=== PATIENT | female | born 1945 | race Caucasian/White ===

== ENCOUNTER 2020-07-27 13:30 | Outpatient (RCR) | payer MEDICARE, OTHER, SELFPAY ==
--- NOTE | 2020-05-30 09:26 | HP.OTEVAL ---
Patient's Visit Information JUAN C NEUMANN is a 74 year old F, referred to Occupational Therapy by Dr. Nestor Ross MD, with a diagnosis of left unilateral primary osteoarthritis. Date of Evaluation: 05/29/20 Occupational Therapist: Loida Bryson, OTR/L, CHT - Subjective This 74 year old female was seen for OT eval with dx of unilateral primary osteoarthritis first carpometacarpal joint left. pt states two year at least she had increase pain and trouble with performing ADLs. pt pt currently 4 weeks s/p left cmc arthroplasty and is in need of custom orthosis to provide support and protection while healing. pt states she decided to have sx because she was limited with ADLs and IADls. - Pain left hand 2 Pain Intensity Range: 3 - ROM Wrist: right 40/60 left 45/45 CMC: right 15 left 0 MP: right 25 left 20 IP: right NT left 45 - Strength Maple Sugar Maker: right 27# left NT - Sensation Sensation Comments: denies - Quick DASH-Disab of Arm,Shoulder& Hand Quick DASH Score: 65.9075 - Rehabilitation General Assessment: pt currently 4 weeks s/p left cmc arthroplasty and demo with limited wrist and thumb ROM. this has increased pt need of assist with ADLs and IADLs. Pt would benefit from skilled OT services 1x week for 8 weeks to assist pt in recovery to return ROM and strength to PLOF. Today therapist asim. custom orthosis of left thumb spica to providing support while structure is healing. Today therapist ed. on orthosis use, precautions and short arch wrist ROM and IP and MP ROM. pt demo understanding and agree to POC. Rehabilitation Potential: Excellent - Anticipated Interventions A/AAROM/PROM, Strengthening, Scar Care, Triggerpoint Release, Desensitization, Modalities, Orthoses, Joint Protection/Energy Conservation, Ergonomic Education, Fine Motor Coord/Aaron - Visit Plan Frequency: 1-2x /Week Duration: 2 Months General Plan: will follow CMC arthroplasty protocol TEXT: Thank you for the opportunity to evaluate your patient. For Medicare and Medicare HMO plans, please review the plan of care and approve it. It will need to be FAXED BACK to us at [phone] for Medicare purposes. Please let me know if there are questions or concerns regarding this plan of care. Physician Signature: Date:
--- NOTE | 2020-05-30 09:29 | HP.OTEVAL_ITS ---
Patient's Visit Information JUAN C NEUMANN is a 74 year old F, referred to Occupational Therapy by Dr. Nestor Ross MD, with a diagnosis of left unilateral primary osteoarthritis. Date of Evaluation: 05/29/20 Occupational Therapist: Loida Bryson, OTR/L, CHT - Subjective This 74 year old female was seen for OT eval with dx of unilateral primary osteoarthritis first carpometacarpal joint left. pt states two year at least she had increase pain and trouble with performing ADLs. pt pt currently 4 weeks s/p left cmc arthroplasty and is in need of custom orthosis to provide support and protection while healing. pt states she decided to have sx because she was limited with ADLs and IADls. - Pain left hand 2 Pain Intensity Range: 3 - ROM Wrist: right 40/60 left 45/45 CMC: right 15 left 0 MP: right 25 left 20 IP: right NT left 45 - Strength Historiographer: right 27# left NT - Sensation Sensation Comments: denies - Quick DASH-Disab of Arm,Shoulder& Hand Quick DASH Score: 65.9075 - Goals Goal:100% adherence to protocol: Yes Comment: CMC arthroplasty protocol l Goal:Daily scar massage when approriate: Yes Goal:ROM equal to unaffected hand: Yes Goal:Historiographer/Pinch strength at least 75% of unaffected hand: Yes Goal:No pain with affected hand use: Yes Goal:Full use of affected hand in daily activities including: Yes Goal:Decrease scar hypersensitivity: Yes - Rehabilitation General Assessment: pt currently 4 weeks s/p left cmc arthroplasty and demo with limited wrist and thumb ROM. this has increased pt need of assist with ADLs and IADLs. Pt would benefit from skilled OT services 1x week for 8 weeks to assist pt in recovery to return ROM and strength to PLOF. Today therapist asim. custom orthosis of left thumb spica to providing support while structure is healing. Today therapist ed. on orthosis use, precautions and short arch wrist ROM and IP and MP ROM. pt demo understanding and agree to POC. Rehabilitation Potential: Excellent - Anticipated Interventions A/AAROM/PROM, Strengthening, Scar Care, Triggerpoint Release, Desensitization, Modalities, Orthoses, Joint Protection/Energy Conservation, Ergonomic Education, Fine Motor Coord/Aaron - Visit Plan Frequency: 1-2x /Week Duration: 2 Months General Plan: will follow CMC arthroplasty protocol TEXT: Thank you for the opportunity to evaluate your patient. For Medicare and Medicare HMO plans, please review the plan of care and approve it. It will need to be FAXED BACK to us at [phone] for Medicare purposes. Please let me know if there are questions or concerns regarding this plan of care. Physician Signature: Date:
--- NOTE | 2020-06-28 09:24 | HP.OTREVAL ---
Dr. Nestor Ross MD, It has been my pleasure to treat JUAN C NEUMANN over the last 5 visits for left unilateral primary osteoarthritis. Please see the progress note below for an update on the occupational therapy plan of care! Subjective: pt arrives 8 weeks s/p Objective/Function: left cmc 20*. MP 25. IP 55. opposition to LF without pain. left air traffic control manager strength 24# left is 27#. left lateral pinch 6#. pt does demo with MP hyper-ext with pinch - pt has been ed. to use good thumb posture and avoid this MP hyper-ext. with pinch and grasp. pt demo understanding- therapist has rec.d cont. with joint protection catalino. and thumb stabilization ex. and possibe use of suppoted MP brace to limit hyper -ext with use for heavy tasks. Plan Frequency: 1-2x /Week Duration: 2 Months Plan: cont with light air traffic control manager strengthening. wrist /biceps Goals - Goals Patient Goals: Regain Mobility, Use Hand/Wrist/Arm Normally Again Goal:100% adherence to protocol: Yes Goal:Daily scar massage when approriate: Yes Goal:ROM equal to unaffected hand: Yes Goal:Supervisor Fabrication And Assembly/Pinch strength at least 75% of unaffected hand: Yes Goal:No pain with affected hand use: Yes Goal:Full use of affected hand in daily activities including: Yes Goal:Decrease scar hypersensitivity: Yes Anticipated Interventions Anticipated Interventions: A/AAROM/PROM, Strengthening, Scar Care, Triggerpoint Release, Desensitization, Modalities, Orthoses, Joint Protection/Energy Conservation, Ergonomic Education, Fine Motor Coord/Aaron Please do not hesitate to contact me at [phone] by phone or if you have questions or concerns regarding this new plan of care! Sincerely, Loida Bryson, OTR/L, CHT
--- NOTE | 2020-11-20 16:30 | HP.OT.NRP ---
JUAN C NEUMANN was seen in my office for initial evaluation on 05/29/20. The following Plan of Care was established for this patient: Initial Frequency: 1-2x /Week Initial Duration: 2 Months Plan: cont POC Anticipated Interventions: A/AAROM/PROM, Strengthening, Scar Care, Triggerpoint Release, Desensitization, Modalities, Orthoses, Joint Protection/Energy Conservation, Ergonomic Education, Fine Motor Coord/Aaron This patient was last seen in our office 07/27/20. Pertinent comments regarding their Occupational therapy will appear below: left cmc 20* MP 25 IP 55 opposition to LF without pain left second ride fare collector strength 30# left is 36# left lateral pinch 6# pt does demo with MP hyper-ext with pinch - pt has been ed. to use good thumb posture and avoid this MP hyper-ext. with pinch and grasp. pt demo understanding- therapist has rec.d cont. with joint protection catalino. and thumb stabilization ex. and possible use of supposed MP brace to limit hyper -ext with use for heavy tasks. pt has not scheduled further apts and at this time d/c due to time lapse in services. At this point I will be discontinuing this patient from occupational therapy. I would be happy to see this patient again in the future if found appropriate by the physician. Thank you! Loida Bryson, OTR/L, CHT
== END 2020-07-27 19:00 | disposition home or self-care (01) ==
LOC: OT 13:30
PROVIDERS: PCP Family Medicine; Referring Provider Specialist; Visit Provider Specialist
DX: M18.12 Unilateral primary osteoarthritis of first carpometacarpal joint, left hand (principal)
CPT/HCPCS: 97110; 97140; 97166; 97530; 97760

== ENCOUNTER 2023-06-25 09:00 | Outpatient (RCR) | payer MEDICARE, OTHER, SELFPAY ==
[2023-06-18 09:01] VITALS: BP 132/68; PULSE 82; RESP 16; TEMP 36.8; BMI 27.3
[2023-06-18 10:13] VITALS: BMI 27.3
--- NOTE | 2023-06-18 11:16 | HP.PCM_ITS ---
History of Present Illness Date of Service: 06/18/23 Chief Complaint: Left lateral lower leg wound traumatic History of Wound: 77-year-old white female with a history of a DVT in the left lower leg has developed an open wound that will not heal. Patient states that last summer had cut her left lower leg and had healed but now reopened. Patient has had problems with healing so they did a Doppler series on her and found that she had a DVT in her left lower leg. Patient is now on Eliquis She also suffers from adrenal insufficiency and is on steroids every day. Patient just finished a bout of antibiotics Augmentin without any cultures being done. [facility] Home Medications alendronate 70 mg tablet (Fosamax) 70 mg PO QWEEK 06/18/23 [History Last Taken Unknown] calcium citrate 200 mg calcium-vitamin D3 3.125 mcg (125 unit) tablet 1 tab PO BID 06/18/23 [History Last Taken Unknown] fludrocortisone 0.1 mg tablet 0.05 mg PO DAILY 06/18/23 [History Last Taken Unknown] hydroxychloroquine 200 mg tablet 200 mg PO DAILY 06/18/23 [History Last Taken Unknown] levothyroxine 50 mcg capsule 50 mcg PO DAILY 06/18/23 [History Last Taken Unknown] magnesium 250 mg tablet 250 mg PO DAILY 06/18/23 [History Last Taken Unknown] dczrgivqgdgk-Aq-vhqj-minerals 1 tab PO DAILY 06/18/23 [History Last Taken Unknown] prednisone 2.5 mg tablet 2.5 mg PO BID 06/18/23 [History Last Taken Unknown] Allergy/AdvReac Type Severity Reaction Status Date / Time latex Allergy Rash Verified 06/18/23 09:22 Social History Smoking Status: Never smoker ROS Constitutional Constitutional: Reports systems reviewed and no addt'l complaints, except as documented Eyes Eyes: Reports systems reviewed and no addt'l complaints, except as documented ENT HEENT: Reports systems reviewed and no addt'l complaints, except as documented Cardiovascular Cardiovascular: Reports systems reviewed and no addt'l complaints, except as documented Respiratory/Chest Respiratory/Chest: Reports systems reviewed and no addt'l complaints, except as documented Gastrointestinal Gastrointestinal: Reports systems reviewed and no addt'l complaints, except as documented Genitourinary Genitourinary: Reports systems reviewed and no addt'l complaints, except as documented Musculoskeletal Musculoskeletal: Reports systems reviewed and no addt'l complaints, except as documented Integumentary Integumentary: Reports wounds and other Details: Left lateral lower extremity open wound nonhealing from trauma. Neurologic Neurologic: Reports systems reviewed and no addt'l complaints, except as documented Psychiatric Psychiatric: Reports systems reviewed and no addt'l complaints, except as documented Endocrine Endocrinology: Reports systems reviewed and no addt'l complaints, except as documented Hematologic/Lymphatic Hematologic/Lymphatic: Reports systems reviewed and no addt'l complaints, except as documented Allergic/Immunologic Allergic/Immunologic: Reports systems reviewed and no addt'l complaints, except as documented Vital Signs Vital Signs Vital Signs: 06/18/23 09:01 Temperature 98.2 F Temperature Source Temporal Pulse Rate 82 Respiratory Rate 16 Blood Pressure 132/68 H Blood Pressure Mean 89 Blood Pressure Source Monitor Blood Pressure Position Sitting Blood Pressure Location Right Arm Oxygen Delivery Method Room Air Weight Weight: 145 lb Body Mass Index (BMI) 27.3 Physical Exam Const oriented x3 General Appearance: cooperative Exam Limitations: no limitations HEENT normocephalic Head and Scalp: normal to inspection Face and Sinus: normal facial exam Nose: external nose normal Eyes PERRL General Eye: normal appearance of both eyes Neck full ROM General: normal visual inspection Resp normal respiratory effort Effort and Inspection: able to speak in complete sentences Auscultation: clear to auscultation bilaterally Cardio regular rate and regular rhythm Palpation: normal PMI Rate: regular rate Rhythm: regular rhythm Extremity General Extremity: normal exam except as noted and other findings Other Details: Varicosities and some discoloration is bruising in the lower leg open wound on the left lateral leg with some swelling Skin Wound Narrative: Open wound left lower leg nonhealing feels it is from trauma reopening of a laceration. Plus history of a DVT in that left lower leg Neuro oriented x3 Psych Appearance: grossly normal Speech: normal speech Thought Content: normal thought content Judgement: judgement good Debridement Note Debridement Note Wound debrided: Left lateral lower leg ulcer none pressure Laterality: Left Type of Debridement: Excisional debridement Anesthesia Used: 5% Lidocaine Gel Depth: in the subcutaneous layer Percentage of wound debrided: 100 Instrument Used: 5mm curette Tissue Removed: Fibrin and slough Severity: Fat Layer Exposed Amount of bleeding with debridement: Mild Bleeding Controlled with: Compression and gauze Patient tolerated procedure: Patient tolerated procedure well Post-Debridement Measurements and Additional Note: Post-Debridement Measurements/Treatment - Nurse 1 - General Ulcer Assessment Start: 06/18/23 09:01 Freq: Status: Active Protocol: ARVIND Activity Type Activity Date Activity User E-sign Co-sign Detail Recorded Client Recorded Date Recorded By Document 06/18/23 09:01 [facility] Desktop 06/18/23 09:17 [facility] Document 06/18/23 10:13 [facility] [id number] 06/18/23 10:14 [facility] 06/18/23 06/18/23 09:01 10:13 - Today's Visit Information Type of service Initial Visit Arrival Mode Ambulatory Transfer Assistance None Transfer Assist (Other) Patient Identification Verified (Name & Yes ) Patient Requires Transmission-Based No Precautions Height and Weight Height 5 ft 1 in Weight 145 lb Weight in Pounds 145.0 lbs Body Mass Index (BMI) 27.3 27.3 BMI Classification Overweight Overweight BSA - Beverly 1.65 Vital Signs Temperature (97.8 F-99.1 F) 98.2 F Temperature Source Temporal Pulse Rate (60-100) 82 Pulse Location Monitor Respiratory Rate (12-18) 16 Respiratory rate source Observation Oxygen Delivery Method Room Air Blood Pressure (90/60-120/80) 132/68 H Blood Pressure Mean 89 Source Monitor Position Sitting Blood Pressure Location Right Arm History Since Last Visit- (Skip if this is Patient's initial visit) Left Footwear Regular Shoe Right Footwear Regular Shoe Pain Scale: 0-10 Numeric Is Patient Pain Free? Yes Yes Lower Extremity Assessment/ Foot Assessment/ Toe Nail Assessment Right -Posterior Tibial Doppler Monophasic -Dorsalis Pedis Doppler Monophasic -Hair Growth on Legs No -Hair Growth on Toes No -Temperature of Extremity Cool -Capillary Refill Less than 3 Seconds -Other Deformity No -Prior Foot Ulcer No -Charcot Joint No -Prior Amputation No -Thick Yes -Discolored Yes -Deformed No -Improper Length & Hygeine No Left -Posterior Tibial Doppler Monophasic -Dorsalis Pedis Doppler Multiphasic -Extremity Color Pale -Hair Growth on Legs No -Hair Growth on Toes No -Temperature of Extremity Cool -Capillary Refill Less than 3 Seconds -Other Deformity No -Prior Foot Ulcer No -Charcot Joint No -Prior Amputation No -Thick Yes -Discolored Yes -Deformed No -Improper Length & Hygeine No Communication Assessment Preferred language Syriac Assistant Housekeeping Manager Required No Able to Read Yes Able to Write Yes Communication Tools None Right Hearing Abillity Normal Left Hearing Abillity Normal Visual Assistive Devices Glasses Teaching Assessment Preferences Verbal,Written, Audio/Visual, Demonstration Barriers to Learning None Readiness To Learn Excellent Willingness to Engage in Self Management High Activies Readiness to Engage in Self Management High Activities Anxiety Level Calm Cooperation Cooperative Perception Coherent Interest in Health Problem Asks Questions Education Importance Acknowledges Need Does Patient Smoke tobacco or other No substances Smoking Status Never smoker Is Patient Diabetic No Functional Assessment Recent Decline in Ability to Perform Denies Any Declines Culture/Catholic/Cylinder Grinder Cultural/Catholic Needs that may affect No Treatment Plan Teaching: Wound Center *Welcome to the Wound Center -Person Taught Patient, Significant Other -Teaching Method Discussion -Response to teaching Verbalize understanding Welcome to the Wound Care Center Syriac WC - Nurse 1 - General Ulcer Measurement Start: 06/18/23 09:01 Freq: Status: Active Protocol: Activity Type Activity Date Activity User E-sign Co-sign Detail Recorded Client Recorded Date Recorded By Document 06/18/23 09:01 [facility] Desktop 06/18/23 09:17 [facility] 06/18/23 09:01 Wound Center Nurse 1 #1- L LAT GALLARDO -Combined with other wound No -Current Size (cm) - Length 2.2 -Current Size (cm) - Width 1.3 -Current Size (cm) - Depth 0.1 -Total Square Cm 2.86 -Date of Last Picture (Recall this 06/18/23 field) -Photo Taken Yes -Epithelialization None Present -Tunneling No -Undermining/Tunneling No -Circular Undermining No -Exudate Amt Medium -Exudate Type Serosanguineous -Wound Margin Distinct, Outline Attached -Granulation Amt None Present (0 %) -Slough/Fibrin Yes -Necrosis Amt Medium (34-66%) -Necrotic Tissue Type Adherent Slough -Texture (Clarice-wound Skin Appearance) Assessed, Scarring -Moisture (Clarice-wound Skin Appearance) Assessed -Color (Clarice-wound Skin Appearance) Assessed -Temperature (Clarice-wound Skin No Abnormality Appearance) (Pt Warm) -Tenderness on Palpation (Clarice-wound No Skin Appearance) -Ulcer Cleansing Soap and Water -Foul Odor after Cleansing No -Anesthetic Used 4% Lidocaine Solution Lower Limb Edema Present Yes Right Calf (cm) 33.8 Right Ankle (cm) 20.3 Left Calf (cm) 33.5 Left Ankle (cm) 20.3 LUZ ELENA - Nurse 2 - General Ulcer CM Notes Start: 06/18/23 09:01 Freq: Status: Active Protocol: Activity Type Activity Date Activity User E-sign Co-sign Detail Recorded Client Recorded Date Recorded By Document 06/18/23 09:32 [facility] Desktop 06/18/23 09:40 MW 06/18/23 09:32 Wound Center Nurse 2 #1- L LAT GALLARDO -Time 09:32 -Correct Patient Yes -Correct Side, Site, Position Yes -Correct Procedure Yes -Procedure Performed Yes -Type of Procedure Debridement -Clinical Debridement Subcutaneous -Tissue Removed Subcutaneous -Post Debridement (cm) - Length 2.1 -Post Debridement (cm) - Width 1.5 -Post Debridement (cm) - Depth 0.2 -Total Square (Post) (cm) 3.15 -Area of Debridement (cm) - Length 2.1 -Area of Debridement (cm) - Width 1.5 -Total Square (Area) (cm) 3.15 -Tunneling No -Undermining/Tunneling No -Circular Undermining No -Wound/Ulcer Outcome Not Healed -Ulcer Cleansing Rinsed/ Irrigated with Saline -Foul Odor after Cleansing No -Bioengineered Tissue No -Bleeding Controlled with Pressure -Treatment Response Procedure Tolerated Well -Offloading No -Debridement - Subq, 1st 20sq cm Yes Pain Scale: 0-10 Numeric Is Patient Pain Free? Yes LUZ ELENA - Nurse 3 - General Ulcer D/C NN Start: 06/18/23 09:01 Freq: Status: Active Protocol: Activity Type Activity Date Activity User E-sign Co-sign Detail Recorded Client Recorded Date Recorded By Document 06/18/23 09:55 [facility] Desktop 06/18/23 09:56 [facility] Edit Result 06/18/23 09:55 [facility] (1) Desktop 06/18/23 10:25 [facility] (1) #1- L LAT GALLARDO - Primary Dressing Applied Fibracol Plus 4x4, => Fibracol Plus 4x4, NonAdherent => Mepilex Border, Contact Layer, => NonAdherent Optilok 6.5x10 => Contact Layer - Mepilex Border => 1 - Optilok 6.5x10 1 => 06/18/23 09:55 Wound Care Center Nurse 3 #1- L LAT GALLARDO -Ulcer Cleansing Rinsed/ Irrigated with Saline -Foul Odor after Cleansing No -Primary Dressing Applied Fibracol Plus 4x4,Mepilex Border, NonAdherent Contact Layer -Fibracol Plus 4x4 1 -Mepilex Border 1 BLE -Tubular Bandage Double Layer -Size of Tubigrip Used Size E -Size E ($) 2 -Other HCS BRAND Treatment Response Procedure Tolerated Well Pain Scale: 0-10 Numeric Is Patient Pain Free? Yes WC - Visit Discharge Discharge Condition Stable Ambulatory Status Ambulatory,Cane Transportation Private Auto Accompanied by [facility] Facility Type Home Health Other PT TO CALL IN W / NAME OF HOME HEALTH Assessment/Plan Assessment/Plan (1) Non-pressure ulcer of left lower extremity: CODE(S): L97.929 - Non-pressure chronic ulcer of unspecified part of left lower leg with unspecified severity QUALIFIERS: Non-pressure ulcer stage: with fat layer exposed Qualified Code(s): L97.922 - Non-pressure chronic ulcer of unspecified part of left lower leg with fat layer exposed PLAN: Wash left lower leg with antibacterial soap such as Dial and pat dry Apply Fibracol to wound base moistened and cover with Adaptic gauze dressing and a Justin. Double layer Tubigrip to left lower leg Cultures were obtained will call with results Follow-up in 1 week (2) Edema of left lower leg: CODE(S): R60.0 - Localized edema (3) Adrenal insufficiency: CODE(S): E27.40 - Unspecified adrenocortical insufficiency
--- NOTE | 2023-06-23 13:35 | WC ---
3.20.24 LT LAT GALLARDO
[2023-06-25 09:01] VITALS: BP 140/68; PULSE 78; RESP 18; TEMP 36.3; BMI 27.3
--- NOTE | 2023-06-25 10:19 | PN.PCM_ITS ---
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 Patient states that last summer had cut her left lower leg and had healed but now reopened. Patient has had problems with healing so they did a Doppler series on her and found that she had a DVT in her left lower leg. Patient is now on Eliquis She also suffers from adrenal insufficiency and is on steroids every day. Patient just finished a bout of antibiotics Augmentin without any cultures being done. 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 We will refer her to Dr. Dasilva for opening up. The wound on her left lateral leg looks very good shallow smaller healing well. Subjective Subjective and are happy with outcomes and they will meet with Dr. Dasilva Objective Data Objective Data As stated above wound area is smaller bakeshop cleaner less depth pretty superficial now we will continue leaving her on the Fibracol and Adaptic and covering it with a dressing. Vital Signs: Vital Signs Temp Pulse Resp BP O2 Del Method 97.3 F L 78 18 140/68 H Room Air 06/25/23 09:01 06/25/23 09:01 06/25/23 09:01 06/25/23 09:01 06/18/23 09:01 Oxygen Delivery Method Room Air Weight: 145 lb Body Mass Index (BMI) 27.3 Lab / Micro Data Attestation: I reviewed the patient's lab results. Micro: Microbiology 06/18/23 09:30 Wound Abcess - Other Gram Stain - Final 06/18/23 09:30 Wound Abcess - Other Wound Culture - Final Staphylococcus epidermidis 06/18/23 09:30 Wound Abcess - Other Anaerobic Culture - Final No growth in 5 days. Physical Exam Const oriented x3 General Appearance: cooperative Exam Limitations: no limitations HEENT normocephalic Head and Scalp: normal to inspection Face and Sinus: normal facial exam Nose: external nose normal Eyes PERRL General Eye: normal appearance of both eyes Neck full ROM General: normal visual inspection Resp normal respiratory effort Effort and Inspection: able to speak in complete sentences Auscultation: clear to auscultation bilaterally Cardio regular rate and regular rhythm Palpation: normal PMI Rate: regular rate Rhythm: regular rhythm Extremity General Extremity: normal exam except as noted and other findings Other Details: Varicosities and some discoloration is bruising in the lower leg open wound on the left lateral leg with some swelling Skin Wound Narrative: Open wound left lower leg nonhealing feels it is from trauma reopening of a laceration. Plus history of a DVT in that left lower leg Neuro oriented x3 Psych Appearance: grossly normal Speech: normal speech Thought Content: normal thought content Judgement: judgement good Debridement Note Debridement Note Wound debrided: Left lateral lower leg ulcer none pressure Laterality: Left Type of Debridement: Excisional debridement Anesthesia Used: 5% Lidocaine Gel Depth: in the subcutaneous layer Percentage of wound debrided: 100 Instrument Used: 5mm curette Tissue Removed: Fibrin and slough Severity: Fat Layer Exposed Amount of bleeding with debridement: Mild Bleeding Controlled with: Compression and gauze Patient tolerated procedure: Patient tolerated procedure well Post-Debridement Measurements and Additional Note: Post-Debridement Measurements/Treatment - Nurse 1 - General Ulcer Assessment Start: 06/18/23 09:01 Freq: Status: Active Protocol: ARVIND Activity Type Activity Date Activity User E-sign Co-sign Detail Recorded Client Recorded Date Recorded By Document 06/18/23 09:01 [facility] Desktop 06/18/23 09:17 [facility] Document 06/18/23 10:13 [facility] [id number] 06/18/23 10:14 [facility] Document 06/25/23 09:01 DL Desktop 06/25/23 09:09 DL 06/18/23 06/18/23 06/25/23 09:01 10:13 09:01 - Today's Visit Information Type of service Initial Visit Follow-up Visit (Physician/RN COMMUNITY ) Arrival Mode Ambulatory Ambulatory Transfer Assistance None None Transfer Assist (Other) Patient Identification Verified (Name & Yes Yes ) Patient Requires Transmission-Based No No Precautions Height and Weight Height 5 ft 1 in Weight 145 lb Weight in Pounds 145.0 lbs Body Mass Index (BMI) 27.3 27.3 27.3 BMI Classification Overweight Overweight Overweight BSA - [place] 1.65 Vital Signs Temperature (97.8 F-99.1 F) 98.2 F 97.3 F L Temperature Source Temporal Temporal Pulse Rate (60-100) 82 78 Pulse Location Monitor Monitor Respiratory Rate (12-18) 16 18 Respiratory rate source Observation Observation Oxygen Delivery Method Room Air Blood Pressure (90/60-120/80) 132/68 H 140/68 H Blood Pressure Mean (mm Hg) 89 92 Source Monitor Monitor Position Sitting Blood Pressure Location Right Arm History Since Last Visit- (Skip if this is Patient's initial visit) Have you changed medications since your No last visit? Any new allergies or adverse reactions No Had a fall/change in ADL's that may No increase risk of falls Signs or symptoms of abuse and/or No neglect since last visit Have you been in the hospital since your No last visit? Has dressing in place as prescribed Yes Has compression in place as prescribed Yes Has offloadiing in place as prescribed N/A Experienced any changes in pain level or No management Left Footwear Regular Shoe Right Footwear Regular Shoe Pain Scale: 0-10 Numeric Is Patient Pain Free? Yes Yes Yes Lower Extremity Assessment/ Foot Assessment/ Toe Nail Assessment Right -Posterior Tibial Doppler Monophasic -Dorsalis Pedis Doppler Monophasic -Hair Growth on Legs No -Hair Growth on Toes No -Temperature of Extremity Cool -Capillary Refill Less than 3 Seconds -Other Deformity No -Prior Foot Ulcer No -Charcot Joint No -Prior Amputation No -Thick Yes -Discolored Yes -Deformed No -Improper Length & Hygeine No Left -Posterior Tibial Doppler Monophasic -Dorsalis Pedis Doppler Multiphasic -Extremity Color Pale -Hair Growth on Legs No -Hair Growth on Toes No -Temperature of Extremity Cool -Capillary Refill Less than 3 Seconds -Other Deformity No -Prior Foot Ulcer No -Charcot Joint No -Prior Amputation No -Thick Yes -Discolored Yes -Deformed No -Improper Length & Hygeine No Communication Assessment Preferred language [place] Reeling Operator Required No Able to Read Yes Able to Write Yes Communication Tools None Right Hearing Abillity Normal Left Hearing Abillity Normal Visual Assistive Devices Glasses Teaching Assessment Preferences Verbal,Written, Audio/Visual, Demonstration Barriers to Learning None Readiness To Learn Excellent Willingness to Engage in Self Management High Activies Readiness to Engage in Self Management High Activities Anxiety Level Calm Cooperation Cooperative Perception Coherent Interest in Health Problem Asks Questions Education Importance Acknowledges Need Does Patient Smoke tobacco or other No substances Smoking Status Never smoker Is Patient Diabetic No Functional Assessment Recent Decline in Ability to Perform Denies Any Declines Culture/Islam/Shoe Dresser Cultural/Islam Needs that may affect No Treatment Plan Teaching: Wound Center *Welcome to the Wound Center -Person Taught Patient, Significant Other -Teaching Method Discussion -Response to teaching Verbalize understanding Welcome to the Wound Care Center English [place] - Nurse 1 - General Ulcer Measurement Start: 06/18/23 09:01 Freq: Status: Active Protocol: Activity Type Activity Date Activity User E-sign Co-sign Detail Recorded Client Recorded Date Recorded By Document 06/18/23 09:01 [facility] Desktop 06/18/23 09:17 [facility] Document 06/25/23 09:01 DL Desktop 06/25/23 09:09 DL 06/18/23 06/25/23 09:01 09:01 Wound Center Nurse 1 #1- L LAT GALLARDO -Combined with other wound No -Current Size (cm) - Length 2.2 1.8 -Current Size (cm) - Width 1.3 1.2 -Current Size (cm) - Depth 0.1 0.1 -Total Square Cm 2.86 2.16 -Date of Last Picture (Recall this 06/18/23 field) -Photo Taken Yes -Epithelialization None Present -Tunneling No -Undermining/Tunneling No -Circular Undermining No -Exudate Amt Medium Medium -Exudate Type Serosanguineous Serosanguineous -Wound Margin Distinct, Distinct, Outline Outline Attached Attached -Granulation Amt None Present (0 Small (1-33%) %) -Granulation Quality [place] -Slough/Fibrin Yes -Necrosis Amt Medium (34-66%) Large (67-100%) -Necrotic Tissue Type Adherent Slough Adherent Slough -Texture (Clarice-wound Skin Appearance) Assessed, Scarring Scarring -Moisture (Clarice-wound Skin Appearance) Assessed No Abnormality -Color (Clarice-wound Skin Appearance) Assessed Hemosiderin Staining -Temperature (Clarice-wound Skin No Abnormality No Abnormality Appearance) (Pt Warm) (Pt Warm) -Tenderness on Palpation (Clarice-wound No Skin Appearance) -Ulcer Cleansing Soap and Water Rinsed/ Irrigated with Saline -Foul Odor after Cleansing No No -Anesthetic Used 4% Lidocaine 5% Lidocaine Solution Gel Lower Limb Edema Present Yes Right Calf (cm) 33.8 30.5 Right Ankle (cm) 20.3 19.6 Left Calf (cm) 33.5 29.8 Left Ankle (cm) 20.3 19.2 WC - Nurse 2 - General Ulcer CM Notes Start: 06/18/23 09:01 Freq: Status: Active Protocol: Activity Type Activity Date Activity User E-sign Co-sign Detail Recorded Client Recorded Date Recorded By Document 06/18/23 09:32 MW Desktop 06/18/23 09:40 MW Document 06/25/23 09:17 [facility] Desktop 06/25/23 09:20 BMF 06/18/23 06/25/23 09:32 09:17 Wound Center Nurse 2 #1- L LAT GALLARDO -Time 09: 09:17 -Correct Patient Yes Yes -Correct Side, Site, Position Yes Yes -Correct Procedure Yes Yes -Procedure Performed Yes Yes -Type of Procedure Debridement Debridement -Clinical Debridement Subcutaneous Subcutaneous -Tissue Removed Subcutaneous Subcutaneous -Post Debridement (cm) - Length 2.1 2 -Post Debridement (cm) - Width 1.5 0.8 -Post Debridement (cm) - Depth 0.2 0.1 -Total Square (Post) (cm) 3.15 1.6 -Area of Debridement (cm) - Length 2.1 2 -Area of Debridement (cm) - Width 1.5 0.8 -Total Square (Area) (cm) 3.15 1.6 -Tunneling No No -Undermining/Tunneling No No -Circular Undermining No No -Wound/Ulcer Outcome Not Healed Not Healed -Ulcer Cleansing Rinsed/ Rinsed/ Irrigated with Irrigated with Saline Saline -Foul Odor after Cleansing No No -Bioengineered Tissue No No -Bleeding Controlled with Pressure Pressure -Treatment Response Procedure Procedure Tolerated Well Tolerated Well -Offloading No No -Debridement - Subq, 1st 20sq cm Yes Yes Pain Scale: 0-10 Numeric Is Patient Pain Free? Yes Yes - Nurse 3 - General Ulcer D/C NN Start: 06/18/23 09:01 Freq: Status: Active Protocol: Activity Type Activity Date Activity User E-sign Co-sign Detail Recorded Client Recorded Date Recorded By Document 06/18/23 09:55 [facility] Desktop 06/18/23 09:56 BMF Edit Result 06/18/23 09:55 BMF (1) Desktop 06/18/23 10:25 BMF (1) #1- L LAT GALLARDO - Primary Dressing Applied Fibracol Plus 4x4, => Fibracol Plus 4x4, NonAdherent => Mepilex Border, Contact Layer, => NonAdherent Optilok 6.5x10 => Contact Layer - Mepilex Border => 1 - Optilok 6.5x10 1 => 06/18/23 09:55 Wound Care Center Nurse 3 #1- L LAT GALLARDO -Ulcer Cleansing Rinsed/ Irrigated with Saline -Foul Odor after Cleansing No -Primary Dressing Applied Fibracol Plus 4x4,Mepilex Border, NonAdherent Contact Layer -Fibracol Plus 4x4 1 -Mepilex Border 1 BLE -Tubular Bandage Double Layer -Size of Tubigrip Used Size E -Size E ($) 2 -Other HCS BRAND Treatment Response Procedure Tolerated Well Pain Scale: 0-10 Numeric Is Patient Pain Free? Yes WC - Visit Discharge Discharge Condition Stable Ambulatory Status Ambulatory,Cane Transportation Private Auto Accompanied by [facility] Facility Type Home Health Other PT TO CALL IN W / NAME OF HOME HEALTH Assessment/Plan Assessment/Plan (1) Non-pressure ulcer of left lower extremity: CODE(S): L97.929 - Non-pressure chronic ulcer of unspecified part of left lower leg with unspecified severity QUALIFIERS: Non-pressure ulcer stage: with fat layer exposed Qualified Code(s): L97.922 - Non-pressure chronic ulcer of unspecified part of left lower leg with fat layer exposed PLAN: Wash left lower leg with antibacterial soap such as Dial and pat dry Apply Fibracol to wound base moistened and cover with Adaptic gauze dressing and a Justin. Double layer Tubigrip to left lower leg Cultures were rare so no treatment was necessary Follow-up in 1 week (2) Edema of left lower leg: CODE(S): R60.0 - Localized edema (3) Adrenal insufficiency: CODE(S): E27.40 - Unspecified adrenocortical insufficiency
== END 2023-06-29 23:59 | disposition home or self-care (01) ==
LOC: WC 09:00
PROVIDERS: PCP Student in an Organized Health Care Education/Training Program; Referring Provider Student in an Organized Health Care Education/Training Program; Visit Provider Nurse Practitioner
DX: L97.922 Non-pressure chronic ulcer of unspecified part of left lower leg with fat layer exposed (principal); I82.402 Acute embolism and thrombosis of unspecified deep veins of left lower extremity; R60.0 Localized edema; E27.40 Unspecified adrenocortical insufficiency; Z79.01 Long term (current) use of anticoagulants
CPT/HCPCS: 11042; 87070; 87075; 87077; 87186; 87205; 99203; G0463

== ENCOUNTER 2023-07-23 09:00 | Outpatient (RCR) | payer MEDICARE, OTHER, SELFPAY ==
[2023-06-30 00:30] VITALS: BP 140/68; PULSE 78; RESP 18; TEMP 36.3; BMI 27.3
[2023-07-02 09:01] VITALS: BP 120/63; PULSE 76; RESP 16; TEMP 37.1; BMI 27.3
--- NOTE | 2023-07-02 10:12 | PN.PCM_ITS ---
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 Patient states that last summer had cut her left lower leg and had healed but now reopened. Patient has had problems with healing so they did a Doppler series on her and found that she had a DVT in her left lower leg. Patient is now on Eliquis She also suffers from adrenal insufficiency and is on steroids every day. Patient just finished a bout of antibiotics Augmentin without any cultures being done. Progress of Wound: Healing very slowly continue with the Fibracol and Adaptic. She does not have a occlusive problem with her veins in her lower extremity on her left and was referred to Dr. Dasilva. He has an appointment being set up Subjective Subjective Patient and are agreeable to plan Objective Data Objective Data No sign of infection clean about the same size really needs to get the veins reopened in her lower leg for healing purposes we will discontinue using the Fibracol and Adaptic over top and change it to Promogran with Adaptic over top. Vital Signs: Vital Signs Temp Pulse Resp BP O2 Del Method 98.8 F 76 16 120/63 Room Air 07/02/23 09:01 07/02/23 09:01 07/02/23 09:01 07/02/23 09:01 07/02/23 09:01 Oxygen Delivery Method Room Air Weight: 145 lb Body Mass Index (BMI) 27.3 Lab / Micro Data Attestation: I reviewed the patient's lab results. Physical Exam Const oriented x3 General Appearance: cooperative Exam Limitations: no limitations HEENT normocephalic Head and Scalp: normal to inspection Face and Sinus: normal facial exam Nose: external nose normal Eyes PERRL General Eye: normal appearance of both eyes Neck full ROM General: normal visual inspection Resp normal respiratory effort Effort and Inspection: able to speak in complete sentences Auscultation: clear to auscultation bilaterally Cardio regular rate and regular rhythm Palpation: normal PMI Rate: regular rate Rhythm: regular rhythm Extremity General Extremity: normal exam except as noted and other findings Other Details: Varicosities and some discoloration is bruising in the lower leg open wound on the left lateral leg with some swelling Skin Wound Narrative: Open wound left lower leg nonhealing feels it is from trauma reopening of a laceration. Plus history of a DVT in that left lower leg Neuro oriented x3 Psych Appearance: grossly normal Speech: normal speech Thought Content: normal thought content Judgement: judgement good Debridement Note Debridement Note Wound debrided: Left lateral lower leg ulcer none pressure Laterality: Left Type of Debridement: Excisional debridement Anesthesia Used: 5% Lidocaine Gel Depth: in the subcutaneous layer Percentage of wound debrided: 100 Instrument Used: 5mm curette Tissue Removed: Fibrin and slough Severity: Fat Layer Exposed Amount of bleeding with debridement: Mild Bleeding Controlled with: Compression and gauze Patient tolerated procedure: Patient tolerated procedure well Post-Debridement Measurements and Additional Note: Post-Debridement Measurements/Treatment - Nurse 1 - General Ulcer Assessment Start: 07/02/23 09:01 Freq: Status: Active Protocol: ARVIND Activity Type Activity Date Activity User E-sign Co-sign Detail Recorded Client Recorded Date Recorded By Document 07/02/23 09:01 [facility] Desktop 07/02/23 09:08 [facility] 07/02/23 09:01 - Today's Visit Information Type of service Follow-up Visit (Physician/[employer] ) Arrival Mode Ambulatory Transfer Assistance None Patient Identification Verified (Name & Yes ) Patient Requires Transmission-Based No Precautions Height and Weight Body Mass Index (BMI) 27.3 BMI Classification Overweight Vital Signs Temperature (97.8 F-99.1 F) 98.8 F Temperature Source Temporal Pulse Rate (60-100) 76 Pulse Location Monitor Respiratory Rate (12-18) 16 Respiratory rate source Observation Oxygen Delivery Method Room Air Blood Pressure (90/60-120/80) 120/63 Blood Pressure Mean (mm Hg) 82 Source Monitor Position Sitting Blood Pressure Location Right Arm History Since Last Visit- (Skip if this is Patient's initial visit) Have you changed medications since your No last visit? Any new allergies or adverse reactions No Had a fall/change in ADL's that may No increase risk of falls Signs or symptoms of abuse and/or No neglect since last visit Have you been in the hospital since your No last visit? Has dressing in place as prescribed Yes Has compression in place as prescribed Yes Has offloadiing in place as prescribed N/A Experienced any changes in pain level or No management Left Footwear Regular Shoe Right Footwear Regular Shoe Pain Scale: 0-10 Numeric Is Patient Pain Free? Yes - Nurse 1 - General Ulcer Measurement Start: 07/02/23 09:01 Freq: Status: Active Protocol: Activity Type Activity Date Activity User E-sign Co-sign Detail Recorded Client Recorded Date Recorded By Document 07/02/23 09:01 [facility] Desktop 07/02/23 09:08 [facility] 07/02/23 09:01 Wound Center Nurse 1 #1- L LAT GALLARDO -Combined with other wound No -Current Size (cm) - Length 1.5 -Current Size (cm) - Width 0.8 -Current Size (cm) - Depth 0.1 -Total Square Cm 1.20 -Date of Last Picture (Recall this 07/02/23 field) -Photo Taken Yes -Epithelialization Small 1-33% -Tunneling No -Undermining/Tunneling No -Circular Undermining No -Exudate Amt Medium -Exudate Type Serosanguineous -Wound Margin Distinct, Outline Attached -Granulation Amt Medium (34-66%) -Granulation Quality Red -Slough/Fibrin Yes -Necrosis Amt Medium (34-66%) -Necrotic Tissue Type Adherent Slough -Texture (Clarice-wound Skin Appearance) Assessed, Scarring -Moisture (Clarice-wound Skin Appearance) Assessed -Color (Clarice-wound Skin Appearance) Assessed -Temperature (Clarice-wound Skin No Abnormality Appearance) (Pt Warm) -Tenderness on Palpation (Clarice-wound No Skin Appearance) -Ulcer Cleansing Rinsed/ Irrigated with Saline -Foul Odor after Cleansing No -Anesthetic Used 5% Lidocaine Gel Right Calf (cm) 30.1 Right Ankle (cm) 20.5 Left Calf (cm) 29.5 Left Ankle (cm) 18.5 - Nurse 2 - General Ulcer CM Notes Start: 07/02/23 09:01 Freq: Status: Active Protocol: Activity Type Activity Date Activity User E-sign Co-sign Detail Recorded Client Recorded Date Recorded By Document 07/02/23 09:12 MW Desktop 07/02/23 09:15 MW 07/02/23 09:12 Wound Center Nurse 2 #1- L LAT GALLARDO -Time 09:12 -Correct Patient Yes -Correct Side, Site, Position Yes -Correct Procedure Yes -Procedure Performed Yes -Type of Procedure Debridement -Clinical Debridement Subcutaneous -Tissue Removed Subcutaneous -Post Debridement (cm) - Length 1.7 -Post Debridement (cm) - Width 1.0 -Post Debridement (cm) - Depth 0.1 -Total Square (Post) (cm) 1.70 -Area of Debridement (cm) - Length 1.7 -Area of Debridement (cm) - Width 1.0 -Total Square (Area) (cm) 1.70 -Tunneling No -Undermining/Tunneling No -Circular Undermining No -Wound/Ulcer Outcome Not Healed -Ulcer Cleansing Rinsed/ Irrigated with Saline -Foul Odor after Cleansing No -Bioengineered Tissue No -Bleeding Controlled with Pressure -Treatment Response Procedure Tolerated Well -Offloading No -Debridement - Subq, 1st 20sq cm Yes Pain Scale: 0-10 Numeric Is Patient Pain Free? Yes - Nurse 3 - General Ulcer D/C NN Start: 07/02/23 09:01 Freq: Status: Active Protocol: Activity Type Activity Date Activity User E-sign Co-sign Detail Recorded Client Recorded Date Recorded By Document 07/02/23 09:18 MW Desktop 07/02/23 09:19 MW 07/02/23 09:18 Wound Care Center Nurse 3 #1- L LAT GALLARDO -Ulcer Cleansing Rinsed/ Irrigated with Saline -Foul Odor after Cleansing No -Primary Dressing Applied Mepilex Border, NonAdherent Contact Layer, Promogran -Mepilex Border 1 -Promogran 1 Left -Tubular Bandage Double Layer -Size of Tubigrip Used Size E -Size E ($) 0 Treatment Response Procedure Tolerated Well Pain Scale: 0-10 Numeric Is Patient Pain Free? Yes - Visit Discharge Discharge Condition Stable Ambulatory Status Ambulatory Transportation Private Auto Accompanied by Facility Type Home Health Assessment/Plan Assessment/Plan (1) Non-pressure ulcer of left lower extremity: CODE(S): L97.929 - Non-pressure chronic ulcer of unspecified part of left lower leg with unspecified severity QUALIFIERS: Non-pressure ulcer stage: with fat layer exposed Qualified Code(s): L97.922 - Non-pressure chronic ulcer of unspecified part of left lower leg with fat layer exposed PLAN: Wash left lower leg with antibacterial soap such as Dial and pat dry Apply Promogran to wound base moistened and cover with Adaptic gauze dressing and a Justin. Double layer Tubigrip to left lower leg Cultures were rare so no treatment was necessary Follow-up in 1 week (2) Edema of left lower leg: CODE(S): R60.0 - Localized edema (3) Adrenal insufficiency: CODE(S): E27.40 - Unspecified adrenocortical insufficiency
--- NOTE | 2023-07-04 12:07 | WC ---
04.03.24 LT LAT LE
[2023-07-09 09:13] VITALS: BP 152/81; PULSE 79; RESP 20; TEMP 36.3; BMI 27.3
--- NOTE | 2023-07-09 12:00 | PCM.WC.PN ---
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 Patient states that last summer had cut her left lower leg and had healed but now reopened. Patient has had problems with healing so they did a Doppler series on her and found that she had a DVT in her left lower leg. Patient is now on Eliquis She also suffers from adrenal insufficiency and is on steroids every day. Patient just finished a bout of antibiotics Augmentin without any cultures being done. Progress of Wound: Healing very slowly continue with the Fibracol and Adaptic. She does not have a occlusive problem with her veins in her lower extremity on her left and was referred to Dr. Dasilva. Appointment with Dr. Dasilva is on Friday. Much smaller but still there we will continue with the Promogran. Subjective Subjective They are agreeable with plan and going to follow-up with Dr. Dasilva Objective Data Objective Data No sign of infection pretty superficial but still there will not close this wound Vital Signs: Vital Signs Temp Pulse Resp BP O2 Del Method 97.3 F L 79 20 H 152/81 H Room Air 07/09/23 09:13 07/09/23 09:13 07/09/23 09:13 07/09/23 09:13 07/02/23 09:01 Oxygen Delivery Method Room Air Weight: 145 lb Body Mass Index (BMI) 27.3 Physical Exam Const oriented x3 General Appearance: cooperative Exam Limitations: no limitations HEENT normocephalic Head and Scalp: normal to inspection Face and Sinus: normal facial exam Nose: external nose normal Eyes PERRL General Eye: normal appearance of both eyes Neck full ROM General: normal visual inspection Resp normal respiratory effort Effort and Inspection: able to speak in complete sentences Auscultation: clear to auscultation bilaterally Cardio regular rate and regular rhythm Palpation: normal PMI Rate: regular rate Rhythm: regular rhythm Extremity General Extremity: normal exam except as noted and other findings Other Details: Varicosities and some discoloration is bruising in the lower leg open wound on the left lateral leg with some swelling Skin Wound Narrative: Open wound left lower leg nonhealing feels it is from trauma reopening of a laceration. Plus history of a DVT in that left lower leg Neuro oriented x3 Psych Appearance: grossly normal Speech: normal speech Thought Content: normal thought content Judgement: judgement good Debridement Note Debridement Note Wound debrided: Left lateral lower leg ulcer none pressure Laterality: Left Type of Debridement: Excisional debridement Anesthesia Used: 5% Lidocaine Gel Depth: in the subcutaneous layer Percentage of wound debrided: 100 Instrument Used: 5mm curette Tissue Removed: Fibrin and slough Severity: Fat Layer Exposed Amount of bleeding with debridement: Mild Bleeding Controlled with: Compression and gauze Patient tolerated procedure: Patient tolerated procedure well Post-Debridement Measurements and Additional Note: Post-Debridement Measurements/Treatment - Nurse 1 - General Ulcer Assessment Start: 07/02/23 09:01 Freq: Status: Active Protocol: ARVIND Activity Type Activity Date Activity User E-sign Co-sign Detail Recorded Client Recorded Date Recorded By Document 07/02/23 09:01 BMF Desktop 07/02/23 09:08 BMF Document 07/09/23 09:13 DL Desktop 07/09/23 09:22 DL 07/02/23 07/09/23 09:01 09:13 - Today's Visit Information Type of service Follow-up Visit Follow-up Visit (Physician/AUTOMOBILE MECHANIC APPRENTICE (Physician/AUTOMOBILE MECHANIC APPRENTICE ) ) Arrival Mode Ambulatory Ambulatory,Cane Transfer Assistance None None Patient Identification Verified (Name & Yes Yes ) Patient Requires Transmission-Based No No Precautions Height and Weight Body Mass Index (BMI) 27.3 27.3 BMI Classification Overweight Overweight Vital Signs Temperature (97.8 F-99.1 F) 98.8 F 97.3 F L Temperature Source Temporal Temporal Pulse Rate (60-100) 76 79 Pulse Location Monitor Monitor Respiratory Rate (12-18) 16 20 H Respiratory rate source Observation Observation Oxygen Delivery Method Room Air Blood Pressure (90/60-120/80) 120/63 152/81 H Blood Pressure Mean (mm Hg) 82 104 Source Monitor Monitor Position Sitting Blood Pressure Location Right Arm History Since Last Visit- (Skip if this is Patient's initial visit) Have you changed medications since your No No last visit? Any new allergies or adverse reactions No No Had a fall/change in ADL's that may No No increase risk of falls Signs or symptoms of abuse and/or No No neglect since last visit Have you been in the hospital since your No No last visit? Has dressing in place as prescribed Yes Yes Has compression in place as prescribed Yes Yes Has offloadiing in place as prescribed N/A N/A Experienced any changes in pain level or No No management Left Footwear Regular Shoe Right Footwear Regular Shoe Pain Scale: 0-10 Numeric Is Patient Pain Free? Yes Yes WC - Nurse 1 - General Ulcer Measurement Start: 07/02/23 09:01 Freq: Status: Active Protocol: Activity Type Activity Date Activity User E-sign Co-sign Detail Recorded Client Recorded Date Recorded By Document 07/02/23 09:01 BMF Desktop 07/02/23 09:08 BMF Document 07/09/23 09:13 DL Desktop 07/09/23 09:22 DL 07/02/23 07/09/23 09:01 09:13 Wound Center Nurse 1 #1- L LAT GALLARDO -Combined with other wound No -Current Size (cm) - Length 1.5 1 -Current Size (cm) - Width 0.8 0.7 -Current Size (cm) - Depth 0.1 0.1 -Total Square Cm 1.20 0.7 -Date of Last Picture (Recall this 07/02/23 field) -Photo Taken Yes Yes -Epithelialization Small 1-33% -Tunneling No -Undermining/Tunneling No -Circular Undermining No -Exudate Amt Medium Small -Exudate Type Serosanguineous Serosanguineous -Wound Margin Distinct, Distinct, Outline Outline Attached Attached -Granulation Amt Medium (34-66%) Small (1-33%) -Granulation Quality Red Red -Slough/Fibrin Yes -Necrosis Amt Medium (34-66%) Small (1-33%) -Necrotic Tissue Type Adherent Slough Adherent Slough -Structure Exposed N/A -Texture (Clarice-wound Skin Appearance) Assessed, Scarring Scarring -Moisture (Clarice-wound Skin Appearance) Assessed No Abnormality -Color (Clarice-wound Skin Appearance) Assessed Hemosiderin Staining -Temperature (Clarice-wound Skin No Abnormality No Abnormality Appearance) (Pt Warm) (Pt Warm) -Tenderness on Palpation (Clarice-wound No Skin Appearance) -Ulcer Cleansing Rinsed/ Rinsed/ Irrigated with Irrigated with Saline Saline -Foul Odor after Cleansing No No -Anesthetic Used 5% Lidocaine 5% Lidocaine Gel Gel Right Calf (cm) 30.1 29.5 Right Ankle (cm) 20.5 17.7 Left Calf (cm) 29.5 28.6 Left Ankle (cm) 18.5 17.8 - Nurse 2 - General Ulcer CM Notes Start: 07/02/23 09:01 Freq: Status: Active Protocol: Activity Type Activity Date Activity User E-sign Co-sign Detail Recorded Client Recorded Date Recorded By Document 07/02/23 09:12 MW Desktop 07/02/23 09:15 MW Document 07/09/23 09:39 MW Desktop 07/09/23 09:42 MW 07/02/23 07/09/23 09:12 09:39 Wound Center Nurse 2 #1- L LAT GALLARDO -Time 09:12 09:39 -Correct Patient Yes Yes -Correct Side, Site, Position Yes Yes -Correct Procedure Yes Yes -Procedure Performed Yes Yes -Type of Procedure Debridement Debridement -Clinical Debridement Subcutaneous Subcutaneous -Tissue Removed Subcutaneous Subcutaneous -Post Debridement (cm) - Length 1.7 1.0 -Post Debridement (cm) - Width 1.0 0.7 -Post Debridement (cm) - Depth 0.1 0.1 -Total Square (Post) (cm) 1.70 0.70 -Area of Debridement (cm) - Length 1.7 1.0 -Area of Debridement (cm) - Width 1.0 0.7 -Total Square (Area) (cm) 1.70 0.70 -Tunneling No No -Undermining/Tunneling No No -Circular Undermining No No -Wound/Ulcer Outcome Not Healed Not Healed -Ulcer Cleansing Rinsed/ Rinsed/ Irrigated with Irrigated with Saline Saline -Foul Odor after Cleansing No No -Bioengineered Tissue No No -Bleeding Controlled with Pressure Pressure -Treatment Response Procedure Procedure Tolerated Well Tolerated Well -Offloading No No -Debridement - Subq, 1st 20sq cm Yes Yes Pain Scale: 0-10 Numeric Is Patient Pain Free? Yes Yes - Nurse 3 - General Ulcer D/C NN Start: 07/02/23 09:01 Freq: Status: Active Protocol: Activity Type Activity Date Activity User E-sign Co-sign Detail Recorded Client Recorded Date Recorded By Document 07/02/23 09:18 MW [facility] 07/02/23 09:19 MW Document 07/09/23 09:52 BMF Desktop 07/09/23 09:53 BMF 07/02/23 07/09/23 09:18 09:52 Wound Care Center Nurse 3 #1- L LAT GALLARDO -Ulcer Cleansing Rinsed/ Rinsed/ Irrigated with Irrigated with Saline Saline -Foul Odor after Cleansing No No -Primary Dressing Applied Mepilex Border, Mepilex Border, NonAdherent NonAdherent Contact Layer, Contact Layer, Promogran Promogran -Other Dressing DRSG PER DL ELECTRONIC MUSICAL INSTRUMENT REPAIRER -Mepilex Border 1 1 -Promogran 1 1 BLE -Tubular Bandage Single Layer -Size of Tubigrip Used Size E -Size E ($) 2 Left -Tubular Bandage Double Layer -Size of Tubigrip Used Size E -Size E ($) 0 Treatment Response Procedure Procedure Tolerated Well Tolerated Well Pain Scale: 0-10 Numeric Is Patient Pain Free? Yes Yes WC - Visit Discharge Discharge Condition Stable Stable Ambulatory Status Ambulatory Ambulatory,Cane Transportation Private Auto Private Auto Accompanied by Facility Type Home Health Assessment/Plan Assessment/Plan (1) Non-pressure ulcer of left lower extremity: CODE(S): L97.929 - Non-pressure chronic ulcer of unspecified part of left lower leg with unspecified severity QUALIFIERS: Non-pressure ulcer stage: with fat layer exposed Qualified Code(s): L97.922 - Non-pressure chronic ulcer of unspecified part of left lower leg with fat layer exposed PLAN: Wash left lower leg with antibacterial soap such as Dial and pat dry Apply Promogran to wound base moistened and cover with Adaptic gauze dressing and a Justin. Double layer Tubigrip to left lower leg Cultures were rare so no treatment was necessary Follow-up in 1 week (2) Edema of left lower leg: CODE(S): R60.0 - Localized edema (3) Adrenal insufficiency: CODE(S): E27.40 - Unspecified adrenocortical insufficiency
[2023-07-16 09:20] VITALS: BP 147/77; PULSE 80; RESP 16; TEMP 36.6; BMI 27.3
--- NOTE | 2023-07-16 10:17 | PCM.WC.PN ---
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 Patient states that last summer had cut her left lower leg and had healed but now reopened. Patient has had problems with healing so they did a Doppler series on her and found that she had a DVT in her left lower leg. Patient is now on Eliquis She also suffers from adrenal insufficiency and is on steroids every day. Patient just finished a bout of antibiotics Augmentin without any cultures being done. Progress of Wound: She does not have a occlusive problem with her veins in her lower extremity on her left and was referred to Dr. Dasilva.. Much smaller but still there we will continue with the Promogran. Subjective Subjective Patient and are agreeable to plan Objective Data Objective Data Appears much smaller this week flatter doing well just slow because of a circulatory problem. Vital Signs: Vital Signs Temp Pulse Resp BP O2 Del Method 98 F 80 16 147/77 H Room Air 07/16/23 09:20 07/16/23 09:20 07/16/23 09:20 07/16/23 09:20 07/16/23 09:20 Oxygen Delivery Method Room Air Weight: 145 lb Body Mass Index (BMI) 27.3 Lab / Micro Data Attestation: I reviewed the patient's lab results. Physical Exam Const oriented x3 General Appearance: cooperative Exam Limitations: no limitations HEENT normocephalic Head and Scalp: normal to inspection Face and Sinus: normal facial exam Nose: external nose normal Eyes PERRL General Eye: normal appearance of both eyes Neck full ROM General: normal visual inspection Resp normal respiratory effort Effort and Inspection: able to speak in complete sentences Auscultation: clear to auscultation bilaterally Cardio regular rate and regular rhythm Palpation: normal PMI Rate: regular rate Rhythm: regular rhythm Extremity General Extremity: normal exam except as noted and other findings Other Details: Varicosities and some discoloration is bruising in the lower leg open wound on the left lateral leg with some swelling Skin Wound Narrative: Open wound left lower leg nonhealing feels it is from trauma reopening of a laceration. Plus history of a DVT in that left lower leg Neuro oriented x3 Psych Appearance: grossly normal Speech: normal speech Thought Content: normal thought content Judgement: judgement good Debridement Note Debridement Note Wound debrided: Left lateral lower leg ulcer none pressure Laterality: Left Type of Debridement: Excisional debridement Anesthesia Used: 5% Lidocaine Gel Depth: in the subcutaneous layer Percentage of wound debrided: 100 Instrument Used: 3mm curette Tissue Removed: Fibrin and slough Severity: Fat Layer Exposed Amount of bleeding with debridement: Mild Bleeding Controlled with: Compression and gauze Patient tolerated procedure: Patient tolerated procedure well Post-Debridement Measurements and Additional Note: Post-Debridement Measurements/Treatment - Nurse 1 - General Ulcer Assessment Start: 07/02/23 09:01 Freq: Status: Active Protocol: ARVIND Activity Type Activity Date Activity User E-sign Co-sign Detail Recorded Client Recorded Date Recorded By Document 07/02/23 09:01 [facility] Desktop 07/02/23 09:08 BM Document 07/09/23 09:13 DL Desktop 07/09/23 09:22 DL Document 07/16/23 09:20 [facility] Desktop 07/16/23 09:24 BMF 07/02/23 07/09/23 07/16/23 09:01 09:13 09:20 - Today's Visit Information Type of service Follow-up Visit Follow-up Visit Follow-up Visit (Physician/ACCOUNT RESOLUTION EXPERT (Physician/ACCOUNT RESOLUTION EXPERT (Physician/ACCOUNT RESOLUTION EXPERT ) ) ) Arrival Mode Ambulatory Ambulatory,Cane Ambulatory,Cane Transfer Assistance None None None Accompanied by Patient Identification Verified (Name & Yes Yes Yes ) Patient Requires Transmission-Based No No No Precautions Height and Weight Body Mass Index (BMI) 27.3 27.3 27.3 BMI Classification Overweight Overweight Overweight Vital Signs Temperature (97.8 F-99.1 F) 98.8 F 97.3 F L 98 F Temperature Source Temporal Temporal Temporal Pulse Rate (60-100) 76 79 80 Pulse Location Monitor Monitor Monitor Respiratory Rate (12-18) 16 20 H 16 Respiratory rate source Observation Observation Observation Oxygen Delivery Method Room Air Room Air Blood Pressure (90/60-120/80) 120/63 152/81 H 147/77 H Blood Pressure Mean (mm Hg) 82 104 100 Source Monitor Monitor Monitor Position Sitting Sitting Blood Pressure Location Right Arm Left Arm History Since Last Visit- (Skip if this is Patient's initial visit) Have you changed medications since your No No No last visit? Any new allergies or adverse reactions No No No Had a fall/change in ADL's that may No No No increase risk of falls Signs or symptoms of abuse and/or No No No neglect since last visit Have you been in the hospital since your No No No last visit? Has dressing in place as prescribed Yes Yes Yes Has compression in place as prescribed Yes Yes Yes Has offloadiing in place as prescribed N/A N/A N/A Experienced any changes in pain level or No No No management Left Footwear Regular Shoe Regular Shoe Right Footwear Regular Shoe Regular Shoe Pain Scale: 0-10 Numeric Is Patient Pain Free? Yes Yes Yes WC - Nurse 1 - General Ulcer Measurement Start: 07/02/23 09:01 Freq: Status: Active Protocol: Activity Type Activity Date Activity User E-sign Co-sign Detail Recorded Client Recorded Date Recorded By Document 07/02/23 09:01 [facility] Desktop 07/02/23 09:08 BMF Document 07/09/23 09:13 DL Desktop 07/09/23 09:22 DL Document 07/16/23 09:20 [facility] Desktop 07/16/23 09:24 BMF 07/02/23 07/09/23 07/16/23 09:01 09:13 09:20 Wound Center Nurse 1 #1- L LAT GALLARDO -Combined with other wound No No -Current Size (cm) - Length 1.5 1 1.1 -Current Size (cm) - Width 0.8 0.7 0.6 -Current Size (cm) - Depth 0.1 0.1 0.1 -Total Square Cm 1.20 0.7 0.66 -Date of Last Picture (Recall this 07/02/23 field) -Photo Taken Yes Yes -Epithelialization Small 1-33% Small 1-33% -Tunneling No No -Undermining/Tunneling No No -Circular Undermining No No -Exudate Amt Medium Small Medium -Exudate Type Serosanguineous Serosanguineous Serosanguineous -Wound Margin Distinct, Distinct, Distinct, Outline Outline Outline Attached Attached Attached -Granulation Amt Medium (34-66%) Small (1-33%) Small (1-33%) -Granulation Quality Red Red Red -Slough/Fibrin Yes Yes -Necrosis Amt Medium (34-66%) Small (1-33%) Large (67-100%) -Necrotic Tissue Type Adherent Slough Adherent Slough Adherent Slough -Structure Exposed N/A -Texture (Clarice-wound Skin Appearance) Assessed, Scarring Assessed Scarring -Moisture (Clarice-wound Skin Appearance) Assessed No Abnormality Assessed,Dry/ Scaly -Color (Clarice-wound Skin Appearance) Assessed Hemosiderin Assessed Staining -Temperature (Clarice-wound Skin No Abnormality No Abnormality No Abnormality Appearance) (Pt Warm) (Pt Warm) (Pt Warm) -Tenderness on Palpation (Clarice-wound No No Skin Appearance) -Ulcer Cleansing Rinsed/ Rinsed/ Rinsed/ Irrigated with Irrigated with Irrigated with Saline Saline Saline -Foul Odor after Cleansing No No No -Anesthetic Used 5% Lidocaine 5% Lidocaine 5% Lidocaine Gel Gel Gel Lower Limb Edema Present Yes Right Calf (cm) 30.1 29.5 Right Ankle (cm) 20.5 17.7 Left Calf (cm) 29.5 28.6 29 Left Ankle (cm) 18.5 17.8 18 WC - Nurse 2 - General Ulcer CM Notes Start: 07/02/23 09:01 Freq: Status: Active Protocol: Activity Type Activity Date Activity User E-sign Co-sign Detail Recorded Client Recorded Date Recorded By Document 07/02/23 09:12 MW Desktop 07/02/23 09:15 MW Document 07/09/23 09:39 MW Desktop 07/09/23 09:42 MW Document 07/16/23 09:33 MW Desktop 07/16/23 09:36 MW 07/02/23 07/09/23 07/16/23 09:12 09:39 09:33 Wound Center Nurse 2 #1- L LAT GALLARDO -Time 09:12 09:39 09:33 -Correct Patient Yes Yes Yes -Correct Side, Site, Position Yes Yes Yes -Correct Procedure Yes Yes Yes -Procedure Performed Yes Yes Yes -Type of Procedure Debridement Debridement Debridement -Clinical Debridement Subcutaneous Subcutaneous Subcutaneous -Tissue Removed Subcutaneous Subcutaneous Subcutaneous -Post Debridement (cm) - Length 1.7 1.0 0.5 -Post Debridement (cm) - Width 1.0 0.7 0.5 -Post Debridement (cm) - Depth 0.1 0.1 0.1 -Total Square (Post) (cm) 1.70 0.70 0.25 -Area of Debridement (cm) - Length 1.7 1.0 0.5 -Area of Debridement (cm) - Width 1.0 0.7 0.5 -Total Square (Area) (cm) 1.70 0.70 0.25 -Tunneling No No No -Undermining/Tunneling No No No -Circular Undermining No No No -Wound/Ulcer Outcome Not Healed Not Healed Not Healed -Ulcer Cleansing Rinsed/ Rinsed/ Rinsed/ Irrigated with Irrigated with Irrigated with Saline Saline Saline -Foul Odor after Cleansing No No No -Bioengineered Tissue No No No -Bleeding Controlled with Pressure Pressure Pressure -Treatment Response Procedure Procedure Procedure Tolerated Well Tolerated Well Tolerated Well -Offloading No No No -Debridement - Subq, 1st 20sq cm Yes Yes Yes Pain Scale: 0-10 Numeric Is Patient Pain Free? Yes Yes Yes - Nurse 3 - General Ulcer D/C NN Start: 07/02/23 09:01 Freq: Status: Active Protocol: Activity Type Activity Date Activity User E-sign Co-sign Detail Recorded Client Recorded Date Recorded By Document 07/02/23 09:18 MW Desktop 07/02/23 09:19 MW Document 07/09/23 09:52 BMF Desktop 07/09/23 09:53 BMF Document 07/16/23 09:40 DL Desktop 07/16/23 09:42 DL 07/02/23 07/09/23 07/16/23 09:18 09:52 09:40 Wound Care Center Nurse 3 #1- L LAT GALLARDO -Ulcer Cleansing Rinsed/ Rinsed/ Rinsed/ Irrigated with Irrigated with Irrigated with Saline Saline Saline -Foul Odor after Cleansing No No No -Primary Dressing Applied Mepilex Border, Mepilex Border, Mepilex Border, NonAdherent NonAdherent NonAdherent Contact Layer, Contact Layer, Contact Layer, Promogran Promogran Promogran -Other Dressing DRSG PER DL MATHEMATICAL PHYSICIST -Mepilex Border 1 1 1 -Promogran 1 1 1 BLE -Tubular Bandage Single Layer -Size of Tubigrip Used Size E -Size E ($) 2 Left -Tubular Bandage Double Layer -Size of Tubigrip Used Size E -Size E ($) 0 -Other tubigrip Treatment Response Procedure Procedure Procedure Tolerated Well Tolerated Well Tolerated Well Pain Scale: 0-10 Numeric Is Patient Pain Free? Yes Yes Yes - Visit Discharge Discharge Condition Stable Stable Stable Ambulatory Status Ambulatory Ambulatory,Cane Ambulatory,Cane Transportation Private Auto Private Auto Private Auto Accompanied by Facility Type Home Health Assessment/Plan Assessment/Plan (1) Non-pressure ulcer of left lower extremity: CODE(S): L97.929 - Non-pressure chronic ulcer of unspecified part of left lower leg with unspecified severity QUALIFIERS: Non-pressure ulcer stage: with fat layer exposed Qualified Code(s): L97.922 - Non-pressure chronic ulcer of unspecified part of left lower leg with fat layer exposed PLAN: Wash left lower leg with antibacterial soap such as Dial and pat dry Apply Promogran to wound base moistened and cover with Adaptic gauze dressing and a Justin. Double layer Tubigrip to left lower leg Cultures were rare so no treatment was necessary Follow-up in 1 week (2) Edema of left lower leg: CODE(S): R60.0 - Localized edema (3) Adrenal insufficiency: CODE(S): E27.40 - Unspecified adrenocortical insufficiency
[2023-07-23 08:42] VITALS: BP 134/70; PULSE 82; RESP 16; TEMP 36.1; BMI 27.3
--- NOTE | 2023-07-23 12:19 | PCM.WC.PN ---
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 Patient states that last summer had cut her left lower leg and had healed but now reopened. Patient has had problems with healing so they did a Doppler series on her and found that she had a DVT in her left lower leg. Patient is now on Eliquis She also suffers from adrenal insufficiency and is on steroids every day. Patient just finished a bout of antibiotics Augmentin without any cultures being done. Progress of Wound: She does not have a occlusive problem with her veins in her lower extremity on her left and was referred to Dr. Dasilva.. Wound is healed patient be discharged from the wound center Subjective Subjective and are very happy with outcome Objective Data Objective Data Cover with a dry gauze dressing for a week and patient may then take everything off. Vital Signs: Vital Signs Temp Pulse Resp BP O2 Del Method 97 F L 82 16 134/70 H Room Air 07/23/23 08:42 07/23/23 08:42 07/23/23 08:42 07/23/23 08:42 07/23/23 08:42 Oxygen Delivery Method Room Air Weight: 145 lb Body Mass Index (BMI) 27.3 Physical Exam Const oriented x3 General Appearance: cooperative Exam Limitations: no limitations HEENT normocephalic Head and Scalp: normal to inspection Face and Sinus: normal facial exam Nose: external nose normal Eyes PERRL General Eye: normal appearance of both eyes Neck full ROM General: normal visual inspection Resp normal respiratory effort Effort and Inspection: able to speak in complete sentences Auscultation: clear to auscultation bilaterally Cardio regular rate and regular rhythm Palpation: normal PMI Rate: regular rate Rhythm: regular rhythm Extremity General Extremity: normal exam except as noted and other findings Other Details: Varicosities and some discoloration is bruising in the lower leg open wound on the left lateral leg with some swelling Skin Wound Narrative: Open wound left lower leg nonhealing feels it is from trauma reopening of a laceration. Plus history of a DVT in that left lower leg Neuro oriented x3 Psych Appearance: grossly normal Speech: normal speech Thought Content: normal thought content Judgement: judgement good Debridement Note Debridement Note No debridement was completed: No debridement was completed today Post-Debridement Measurements and Additional Note: Post-Debridement Measurements/Treatment - Nurse 1 - General Ulcer Assessment Start: 07/02/23 09:01 Freq: Status: Active Protocol: ARVIND Activity Type Activity Date Activity User E-sign Co-sign Detail Recorded Client Recorded Date Recorded By Document 07/02/23 09:01 BMF Desktop 07/02/23 09:08 BMF Document 07/09/23 09:13 DL Desktop 07/09/23 09:22 DL Document 07/16/23 09:20 BMF Desktop 07/16/23 09:24 BMF Document 07/23/23 08:42 BMF Desktop 07/23/23 08:47 BMF 07/02/23 07/09/23 07/16/23 09:01 09:13 09:20 - Today's Visit Information Type of service Follow-up Visit Follow-up Visit Follow-up Visit (Physician/WEB PRODUCTION ASSISTANT (Physician/WEB PRODUCTION ASSISTANT (Physician/WEB PRODUCTION ASSISTANT ) ) ) Arrival Mode Ambulatory Ambulatory,Cane Ambulatory,Cane Transfer Assistance None None None Accompanied by Patient Identification Verified (Name & Yes Yes Yes ) Patient Requires Transmission-Based No No No Precautions Height and Weight Body Mass Index (BMI) 27.3 27.3 27.3 BMI Classification Overweight Overweight Overweight Vital Signs Temperature (97.8 F-99.1 F) 98.8 F 97.3 F L 98 F Temperature Source Temporal Temporal Temporal Pulse Rate (60-100) 76 79 80 Pulse Location Monitor Monitor Monitor Respiratory Rate (12-18) 16 20 H 16 Respiratory rate source Observation Observation Observation Oxygen Delivery Method Room Air Room Air Blood Pressure (90/60-120/80) 120/63 152/81 H 147/77 H Blood Pressure Mean (mm Hg) 82 104 100 Source Monitor Monitor Monitor Position Sitting Sitting Blood Pressure Location Right Arm Left Arm History Since Last Visit- (Skip if this is Patient's initial visit) Have you changed medications since your No No No last visit? Any new allergies or adverse reactions No No No Had a fall/change in ADL's that may No No No increase risk of falls Signs or symptoms of abuse and/or No No No neglect since last visit Have you been in the hospital since your No No No last visit? Has dressing in place as prescribed Yes Yes Yes Has compression in place as prescribed Yes Yes Yes Has offloadiing in place as prescribed N/A N/A N/A Experienced any changes in pain level or No No No management Left Footwear Regular Shoe Regular Shoe Right Footwear Regular Shoe Regular Shoe Pain Scale: 0-10 Numeric Is Patient Pain Free? Yes Yes Yes 07/23/23 08:42 - Today's Visit Information Type of service Follow-up Visit (Physician/WEB PRODUCTION ASSISTANT ) Arrival Mode Ambulatory,Cane Transfer Assistance None Accompanied by Patient Identification Verified (Name & Yes ) Patient Requires Transmission-Based No Precautions Height and Weight Body Mass Index (BMI) 27.3 BMI Classification Overweight Vital Signs Temperature (97.8 F-99.1 F) 97 F L Temperature Source Temporal Pulse Rate (60-100) 82 Pulse Location Monitor Respiratory Rate (12-18) 16 Respiratory rate source Observation Oxygen Delivery Method Room Air Blood Pressure (90/60-120/80) 134/70 H Blood Pressure Mean (mm Hg) 91 Source Monitor Position Sitting Blood Pressure Location Left Arm History Since Last Visit- (Skip if this is Patient's initial visit) Have you changed medications since your No last visit? Any new allergies or adverse reactions No Had a fall/change in ADL's that may No increase risk of falls Signs or symptoms of abuse and/or No neglect since last visit Have you been in the hospital since your No last visit? Has dressing in place as prescribed Yes Has compression in place as prescribed Yes Has offloadiing in place as prescribed N/A Experienced any changes in pain level or No management Left Footwear Regular Shoe Right Footwear Regular Shoe Pain Scale: 0-10 Numeric Is Patient Pain Free? Yes - Nurse 1 - General Ulcer Measurement Start: 07/02/23 09:01 Freq: Status: Active Protocol: Activity Type Activity Date Activity User E-sign Co-sign Detail Recorded Client Recorded Date Recorded By Document 07/02/23 09:01 BMF Desktop 07/02/23 09:08 BMF Document 07/09/23 09:13 DL Desktop 07/09/23 09:22 DL Document 07/16/23 09:20 BMF Desktop 07/16/23 09:24 BMF Document 07/23/23 08:42 BMF Desktop 07/23/23 08:47 BMF 07/02/23 07/09/23 07/16/23 09:01 09:13 09:20 Wound Center Nurse 1 #1- L LAT GALLARDO -Combined with other wound No No -Current Size (cm) - Length 1.5 1 1.1 -Current Size (cm) - Width 0.8 0.7 0.6 -Current Size (cm) - Depth 0.1 0.1 0.1 -Total Square Cm 1.20 0.7 0.66 -Date of Last Picture (Recall this 07/02/23 field) -Photo Taken Yes Yes -Epithelialization Small 1-33% Small 1-33% -Tunneling No No -Undermining/Tunneling No No -Circular Undermining No No -Exudate Amt Medium Small Medium -Exudate Type Serosanguineous Serosanguineous Serosanguineous -Wound Margin Distinct, Distinct, Distinct, Outline Outline Outline Attached Attached Attached -Granulation Amt Medium (34-66%) Small (1-33%) Small (1-33%) -Granulation Quality Red Red Red -Slough/Fibrin Yes Yes -Necrosis Amt Medium (34-66%) Small (1-33%) Large (67-100%) -Necrotic Tissue Type Adherent Slough Adherent Slough Adherent Slough -Structure Exposed N/A -Texture (Clarice-wound Skin Appearance) Assessed, Scarring Assessed Scarring -Moisture (Clarice-wound Skin Appearance) Assessed No Abnormality Assessed,Dry/ Scaly -Color (Clarice-wound Skin Appearance) Assessed Hemosiderin Assessed Staining -Temperature (Clarice-wound Skin No Abnormality No Abnormality No Abnormality Appearance) (Pt Warm) (Pt Warm) (Pt Warm) -Tenderness on Palpation (Clarice-wound No No Skin Appearance) -Ulcer Cleansing Rinsed/ Rinsed/ Rinsed/ Irrigated with Irrigated with Irrigated with Saline Saline Saline -Foul Odor after Cleansing No No No -Anesthetic Used 5% Lidocaine 5% Lidocaine 5% Lidocaine Gel Gel Gel Lower Limb Edema Present Yes Right Calf (cm) 30.1 29.5 Right Ankle (cm) 20.5 17.7 Left Calf (cm) 29.5 28.6 29 Left Ankle (cm) 18.5 17.8 18 07/23/23 08:42 Wound Center Nurse 1 #1- L LAT GALLARDO -Combined with other wound No -Current Size (cm) - Length 0.6 -Current Size (cm) - Width 0.4 -Current Size (cm) - Depth 0.1 -Total Square Cm 0.24 -Date of Last Picture (Recall this field) -Photo Taken No -Epithelialization Medium 34-66% -Tunneling No -Undermining/Tunneling No -Circular Undermining No -Exudate Amt Medium -Exudate Type Serosanguineous -Wound Margin Flat & Intact -Granulation Amt Medium (34-66%) -Granulation Quality Red -Slough/Fibrin Yes -Necrosis Amt Medium (34-66%) -Necrotic Tissue Type Adherent Slough -Structure Exposed -Texture (Clarice-wound Skin Appearance) Assessed, Scarring -Moisture (Clarice-wound Skin Appearance) Assessed -Color (Clarice-wound Skin Appearance) Assessed -Temperature (Clarice-wound Skin No Abnormality Appearance) (Pt Warm) -Tenderness on Palpation (Clarice-wound No Skin Appearance) -Ulcer Cleansing Rinsed/ Irrigated with Saline -Foul Odor after Cleansing No -Anesthetic Used 5% Lidocaine Gel Lower Limb Edema Present Yes Right Calf (cm) Right Ankle (cm) Left Calf (cm) 28.5 Left Ankle (cm) 18.3 WC - Nurse 2 - General Ulcer CM Notes Start: 07/02/23 09:01 Freq: Status: Active Protocol: Activity Type Activity Date Activity User E-sign Co-sign Detail Recorded Client Recorded Date Recorded By Document 07/02/23 09:12 MW Desktop 07/02/23 09:15 MW Document 07/09/23 09:39 MW Desktop 07/09/23 09:42 MW Document 07/16/23 09:33 MW Desktop 07/16/23 09:36 MW Document 07/23/23 09:13 MW Desktop 07/23/23 09:19 MW 07/02/23 07/09/23 07/16/23 09:12 09:39 09:33 Wound Center Nurse 2 #1- L LAT GALLARDO -Time 09:12 09:39 09:33 -Correct Patient Yes Yes Yes -Correct Side, Site, Position Yes Yes Yes -Correct Procedure Yes Yes Yes -Procedure Performed Yes Yes Yes -Type of Procedure Debridement Debridement Debridement -Clinical Debridement Subcutaneous Subcutaneous Subcutaneous -Tissue Removed Subcutaneous Subcutaneous Subcutaneous -Post Debridement (cm) - Length 1.7 1.0 0.5 -Post Debridement (cm) - Width 1.0 0.7 0.5 -Post Debridement (cm) - Depth 0.1 0.1 0.1 -Total Square (Post) (cm) 1.70 0.70 0.25 -Area of Debridement (cm) - Length 1.7 1.0 0.5 -Area of Debridement (cm) - Width 1.0 0.7 0.5 -Total Square (Area) (cm) 1.70 0.70 0.25 -Tunneling No No No -Undermining/Tunneling No No No -Circular Undermining No No No -Wound/Ulcer Outcome Not Healed Not Healed Not Healed -Ulcer Cleansing Rinsed/ Rinsed/ Rinsed/ Irrigated with Irrigated with Irrigated with Saline Saline Saline -Foul Odor after Cleansing No No No -Bioengineered Tissue No No No -Bleeding Controlled with Pressure Pressure Pressure -Treatment Response Procedure Procedure Procedure Tolerated Well Tolerated Well Tolerated Well -Offloading No No No -Debridement - Subq, 1st 20sq cm Yes Yes Yes Pain Scale: 0-10 Numeric Is Patient Pain Free? Yes Yes Yes 07/23/23 09:13 Wound Center Nurse 2 #1- L LAT GALLARDO -Time 08:45 -Correct Patient Yes -Correct Side, Site, Position Yes -Correct Procedure Yes -Procedure Performed No -Type of Procedure -Clinical Debridement -Tissue Removed -Post Debridement (cm) - Length 0 -Post Debridement (cm) - Width 0 -Post Debridement (cm) - Depth 0 -Total Square (Post) (cm) 0 -Area of Debridement (cm) - Length -Area of Debridement (cm) - Width -Total Square (Area) (cm) -Tunneling -Undermining/Tunneling -Circular Undermining -Wound/Ulcer Outcome Healed- Epithelialized -Ulcer Cleansing -Foul Odor after Cleansing -Bioengineered Tissue -Bleeding Controlled with -Treatment Response -Offloading -Debridement - Subq, 1st 20sq cm Pain Scale: 0-10 Numeric Is Patient Pain Free? Yes - Nurse 3 - General Ulcer D/C NN Start: 07/02/23 09:01 Freq: Status: Active Protocol: Activity Type Activity Date Activity User E-sign Co-sign Detail Recorded Client Recorded Date Recorded By Document 07/02/23 09:18 MW Desktop 07/02/23 09:19 MW Document 07/09/23 09:52 BMF Desktop 07/09/23 09:53 BMF Document 07/16/23 09:40 DL Desktop 07/16/23 09:42 DL Document 07/23/23 09:02 BMF Desktop 07/23/23 09:04 BMF 07/02/23 07/09/23 07/16/23 09:18 09:52 09:40 Wound Care Center Nurse 3 #1- L LAT GALLARDO -Ulcer Cleansing Rinsed/ Rinsed/ Rinsed/ Irrigated with Irrigated with Irrigated with Saline Saline Saline -Foul Odor after Cleansing No No No -Primary Dressing Applied Mepilex Border, Mepilex Border, Mepilex Border, NonAdherent NonAdherent NonAdherent Contact Layer, Contact Layer, Contact Layer, Promogran Promogran Promogran -Other Dressing DRSG PER DL VINYL CUTTER -Mepilex Border 1 1 1 -Promogran 1 1 1 BLE -Tubular Bandage Single Layer -Size of Tubigrip Used Size E -Size E ($) 2 -Other Left -Tubular Bandage Double Layer -Size of Tubigrip Used Size E -Size E ($) 0 -Other tubigrip Treatment Response Procedure Procedure Procedure Tolerated Well Tolerated Well Tolerated Well Pain Scale: 0-10 Numeric Is Patient Pain Free? Yes Yes Yes WC - Visit Discharge Discharge Condition Stable Stable Stable Ambulatory Status Ambulatory Ambulatory,Cane Ambulatory,Cane Transportation Private Auto Private Auto Private Auto Accompanied by Facility Type Home Health 07/23/23 09:02 Wound Care Center Nurse 3 #1- L LAT GALLARDO -Ulcer Cleansing Rinsed/ Irrigated with Saline -Foul Odor after Cleansing No -Primary Dressing Applied Mepilex Border, NonAdherent Contact Layer, Promogran -Other Dressing -Mepilex Border 1 -Promogran 1 BLE -Tubular Bandage -Size of Tubigrip Used -Size E ($) -Other pt own compression applied Left -Tubular Bandage -Size of Tubigrip Used -Size E ($) -Other Treatment Response Procedure Tolerated Well Pain Scale: 0-10 Numeric Is Patient Pain Free? Yes WC - Visit Discharge Discharge Condition Stable Ambulatory Status Ambulatory,Cane Transportation Private Auto Accompanied by Facility Type Home Health Assessment/Plan Assessment/Plan (1) Non-pressure ulcer of left lower extremity: CODE(S): L97.929 - Non-pressure chronic ulcer of unspecified part of left lower leg with unspecified severity QUALIFIERS: Non-pressure ulcer stage: with fat layer exposed Qualified Code(s): L97.922 - Non-pressure chronic ulcer of unspecified part of left lower leg with fat layer exposed PLAN: Discharge from the wound center follow-up as needed Keep follow-up appointments with Dr. Dasilva (2) Edema of left lower leg: CODE(S): R60.0 - Localized edema (3) Adrenal insufficiency: CODE(S): E27.40 - Unspecified adrenocortical insufficiency
== END 2023-07-29 23:59 | disposition home or self-care (01) ==
LOC: WC 09:00
PROVIDERS: PCP Student in an Organized Health Care Education/Training Program; Referring Provider Student in an Organized Health Care Education/Training Program; Visit Provider Nurse Practitioner
DX: L97.922 Non-pressure chronic ulcer of unspecified part of left lower leg with fat layer exposed (principal); E27.40 Unspecified adrenocortical insufficiency; R60.0 Localized edema; Z86.718 Personal history of other venous thrombosis and embolism
CPT/HCPCS: 11042; 99213; G0463

== ENCOUNTER → 2023-07-25 | Outpatient (CLI) | payer MEDICARE, OTHER, SELFPAY ==
--- NOTE | 2023-07-25 09:53 | VDLE_ITS ---
Reason For Study: PAIN RIGHT LEFT GSV is normal. CFV is compressible, spontaneous, phasic, Procedure competent, and demonstrates normal This is a venous duplex using B-mode, color augmentation. flow and spectral Doppler. FV is compressible, spontaneous, phasic, Exam performed in department. competent and demonstrates normal augmentation. POP V is compressible, spontaneous, phasic, competent and demonstrates normal augmentation. T/P Trunk is compressible. PTV is compressible. LT PerV is compressible. SFJ is competent and measures 0.57 X 0.55 cm. GSV proximal thigh measures 0.26 X 0.23 cm. GSV at knee measures 0.24 X 0.20 cm. GSV is competent throughout. SSV proximal calf is competent and measures 0.19 X 0.15 cm. VL/Venous Duplex US, Unilateral Interpretation Summary Deep veins of the left lower extremity are patent and compressible segmentally. There is no evidence of left lower extremity deep vein thrombosis. The left great saphenous vein castillo ears patent and compressible segmentally. Negative for reflux Ordering Physician: Elissa Heard Referring Physician: Som Dasilva Performed By: Tabitha Apodaca, RDCS, RVT
== END | disposition home or self-care (01) ==
LOC: CVS 09:49
PROVIDERS: PCP Student in an Organized Health Care Education/Training Program; Referring Provider Surgery Trauma Surgery; Visit Provider Surgery Trauma Surgery
DX: L97.922 Non-pressure chronic ulcer of unspecified part of left lower leg with fat layer exposed (principal); R60.0 Localized edema; I87.2 Venous insufficiency (chronic) (peripheral)
CPT/HCPCS: 93971